=== PATIENT | female | born 1940 | race Caucasian/White ===

== ENCOUNTER → 2017-03-13 | Outpatient (CLI) | payer MEDICARE, OTHER | END | disposition home or self-care (01) | LOC: HKI 13:49 | PROVIDERS: ATTEND Orthopaedic Surgery | DX: M70.62 Trochanteric bursitis, left hip (principal); M25.552 Pain in left hip; Z96.641 Presence of right artificial hip joint | CPT/HCPCS: 20610; G0463; J1030 ==